=== PATIENT | female | born 1960 | race Caucasian/White ===

== ENCOUNTER → 2018-08-18 | Outpatient (CLI) | payer OTHER ==
[2018-08-18 21:06] LABS: IgG 876 mg/dL (700-1600); IgM 64 mg/dL (26-217)
[2018-08-19 10:10] LABS: HEPATITIS B SURFACE AG Negative (Negative)
[2018-08-20 03:06] LABS: CERULOPLASMIN 22.7 mg/dL (19.0-39.0)
[2018-08-20 13:07] LABS: ANA INTERPRETATION Negative (Negative)
== END ==
LOC: M.LAB 12:07
PROVIDERS: Physician Assistant
DX: R94.5 Abnormal results of liver function studies (principal); K76.0 Fatty (change of) liver, not elsewhere classified

== ENCOUNTER → 2018-08-23 | Outpatient (CLI) | payer OTHER ==
[2018-08-23 14:35] LABS: INR 1.1; PROTIME 10.8 Seconds (9.20-11.50)
== END ==
LOC: M.LAB 14:02
PROVIDERS: Physician Assistant
DX: R94.5 Abnormal results of liver function studies (principal); K76.0 Fatty (change of) liver, not elsewhere classified

== ENCOUNTER → 2018-10-28 | Outpatient (CLI) | payer OTHER ==
[~2018-10-28] MED LIST: ADVIL PM CAPLE1 EACH PO; LISINOPRIL20 MG PO; PRAMIPEXOLE D0.25 MG PO; PROBIOTIC1 EAC1 PO; TRAZODONE HCL50 MG PO
== END ==
LOC: M.MRI 07:43
DX: K80.80 Other cholelithiasis without obstruction (principal); R94.5 Abnormal results of liver function studies

== ENCOUNTER → 2018-11-03 | Day surgery (SDC) | payer OTHER ==
[2018-11-03 12:22] LABS: HEMATOCRIT 47.3 % (37.0-47.0); HEMOGLOBIN 15.9 gm/dL (12.0-15.0); MCHC 33.7 g/dL (28.0-37.0); MCV 88.9 fL (80.0-100.0); MPV 8.5 fl. (7.2-11.1); RBC 5.31 mil/uL (4.20-5.00); RDW-CV 14.1 % (10.5-14.5); WBC 6.5 thou/uL (4.0-11.0)
[2018-11-03 12:31] LABS: CALCIUM 10.1 mg/dL (8.5-10.1); CREATININE 0.9 mg/dL (0.6-1.3); POTASSIUM 3.7 mmol/L (3.5-5.1)
[2018-11-03 12:35] LABS: ALBUMIN 4.1 g/dL (3.4-5.0); TOTAL BILIRUBIN 0.7 mg/dL (<0.1-1.0)
--- NOTE | 2018-11-03 17:22 | EKG ---
[place] [address] ELECTROCARDIOGRAM REPORT Name: MO FINE Room: [facility]#: [id number] Admission: 11/03/18 Attend Phys: Tiffany Mckinnon DO Discharge: Date of : 58 Report #: [id number] THIS REPORT FOR: //name// [facility] Test Date: 2018-11-03 Test Time: 12:30:08 Pat Name: MO FINE Department: Room: Gender: F [employer] Project Lead: : 1960 Requested By: Tiffany Mckinnon Order Number: [id number] Serafin MD: Michael Bermudez Measurements Intervals [place] Rate: 65 P: 9 MN: 157 QRS: 12 QRSD: 86 T: 27 QT: 411 QTc: 428 Interpretive Statements Sinus rhythm Low voltage, precordial leads No previous ECG available for comparison Electronically Signed On 11-03-2018 17:22:03 CDT by Michael Bermudez [email or web address] <ELECTRONICALLY SIGNED> By: Michael Bermudez MD, [facility] 11/03/18 1722 1230 1230 Michael Bermudez MD, FACC /EPI
--- NOTE | 2018-11-04 08:04 | OP ---
[address] [address] OPERATIVE REPORT Name: MO FINE Room: [facility]..#: [id number] Admission: 11/03/18 Attend Phys: Tiffany Mckinnon DO Discharge: Date of : 58 Report #: [id number] THIS REPORT FOR: //name// CC: Tiffany Dash DO DICTATED BY: Lan Lubin DO DATE OF SERVICE: 11/03/2018 PREOPERATIVE DIAGNOSIS: Cholelithiasis. POSTOPERATIVE DIAGNOSIS: Chronic cholecystitis with cholelithiasis. SURGEON: Tiffany Mckinnon MD MATERIAL HANDLER FLOORPERSON: Angelo Lubin, PGY5 and Shira Eduardo, PGY2. OPERATION PERFORMED: Laparoscopic cholecystectomy. ANESTHESIA: General and local. ESTIMATED BLOOD LOSS: 5 mL. SPECIMENS: Gallbladder and contents. COMPLICATIONS: None. DISPOSITION: PACU to home. HISTORY OF PRESENT ILLNESS: The patient is a very pleasant 57-year-old female who presented to the office with complaints of abdominal pain. She has a known history of reflux and was worked up by the GI doctor, but was found to have gallstones as well as some mildly elevated LFTs. We had thoroughly evaluated her and got adequate history and physical, reviewed all of her labs as well as her imaging studies. We then recommended the patient to have a laparoscopic cholecystectomy to hopefully alleviate her pain as she has been having. Complete description of the procedure was reviewed in detail with the patient. All risks, benefits, and complications were discussed at the time of the office visit as well as prior to the surgery. The patient had all of her questions answered at bedside. She agreed with the plan and then wanted to proceed. DESCRIPTION OF PROCEDURE: After the appropriate consents were obtained, the patient was taken to the operating room, laid in the supine position. She had SCDs placed on her bilateral lower extremities and a safety [place] [address] OPERATIVE REPORT Name: MARQUEZLAMBERTMO ROSANNA Room: [facility]#: [id number] Admission: 11/03/18 Attend Phys: Tiffany Mckinnon DO Discharge: Date of : 58 Report #: [id number] her lap. She had all lines placed by Anesthesia. The patient was then sedated and intubated by anesthesia without difficulty. Her right arm was tucked at her side and the left arm was placed out. We did place a footboard in the bed to help secure it to the bed. Her abdomen was then prepped and draped in a standard sterile fashion. A timeout was performed to correctly identify the patient and procedure. The patient did receive perioperative antibiotics. We started with some 0.5% Marcaine at the supraumbilical site. We then used a #11 blade scalpel between 2 Adson's to make our supraumbilical semilunar incision at the curvature of the umbilicus. This was carried down through subcutaneous tissue until we encountered the anterior abdominal wall fascia. Once the fascia was encountered, it was grasped and elevated between 2 Britton clamps. The fascia was then incised using electrocautery and we entered the patient's peritoneal cavity bluntly using hemostat. A finger was used to sweep the anterior abdominal wall surface to ensure there were no carley-incisional adhesions noted present. We then placed 2 separate 0 Vicryl sutures on either side to act as stay sutures prior to May trocar. We then introduced the Daryl trocar and insufflated the patient's belly to 15 mmHg. The Daryl trocar was secured using the previously placed 0 Vicryl stitches. We introduced the camera and placed the patient in the head up and left side down position. Upon initial inspection, she had a gross amount of omentum and we could visualize her gallbladder rather easily. We then elected to place a 5 mm subxiphoid port under direct visualization. Using a blunt grasper, we were able to grasp the gallbladder and elevate it and then placed our right lateral abdominal wall ports under direct visualization. The gallbladder was then grasped and elevated anteriorly and cephalad to visualize the inferior portion of the gallbladder and hopefully visualize Drew's pouch. The patient had extensive amount of omental adhesions to the gallbladder, which were taken down bluntly as well as using electrocautery. We carefully took these down and stayed high on the gallbladder. Once we were able to completely visualize Drew's pouch, we started laterally with our dissection and we were able to visualize the lateral side of the cystic duct. I then turned our attention more medially and we were able to visualize Calot node and dissect out the cystic artery, which was coursing directly posterior to it. It was at that time that we were easily able to visualize our critical view of safety. There were 2 and only 2 structures going directly into the gallbladder. We then placed clips on the cystic duct as well as the cystic artery and both of these were incised using laparoscopic scissors. After these were incised, there was no oozing or bleeding from either of the arteries or the duct. We then continued our dissection using electrocautery, but were very careful in the posterior aspect of that there was a small posterior branch of the cystic artery going into the gallbladder. This was also skeletonized and had clips proximal and distally placed on it and was again incised using the laparoscopic scissors. After this, we carried our dissection out removing the gallbladder from the liver bed without difficulty. The bleeding was occurring was minimal in nature and was adequately controlled using electrocautery. Once the gallbladder was completely removed from the liver bed, it was placed in an EndoCatch pouch. We then [place] [address] OPERATIVE REPORT Name: MO FINE Room: [facility]#: [id number] Admission: 11/03/18 Attend Phys: Tiffany Mckinnon DO Discharge: Date of : 58 Report #: [id number] back to our clips to ensure they were in place as well as the liver bed. There did not appear to be any oozing or bleeding from the liver bed and no oozing or bleeding from the cystic duct or the cystic artery. It was at this time that we elected to place the patient in the neutral supine position. We removed our trocars under direct visualization. The patient's gallbladder was removed from the supraumbilical incision site. This was passed off as specimen sent to pathology of further evaluation. We grasped the fascia between the supraumbilical incision site and we approximated the fascia using a single [id number] 0 Vicryl stitch. We did ensure that prior to tying down our suture that there were no intra-abdominal contents and none were present within the fascia or the suture, we were tying. We then injected the patient's fascia as well as the subcutaneous tissue using 0.5% Marcaine. The subcutaneous was then closed using a 3-0 Vicryl stitch in an inverted interrupted fashion. The skin was closed using a running 4-0 Monocryl stitch in a subcuticular fashion. Each of the remaining 5 mm incision sites were injected using 0.5% Marcaine and closed using the same 4-0 Monocryl stitch in an inverted interrupted fashion. The patient's abdomen was cleaned and dried adequately and we placed Mastisol, Steri-Strips, gauze and a sterile Tegaderm applied over each of the incision sites. The counts were correct x 2 at the end of the procedure. Dr. Mckinnon was present and scrubbed for entirety of the procedure. The patient tolerated the procedure well. She was allowed to awaken and subsequently extubated in the OR and transferred to PACU where she will be allowed to recover and hopefully discharged home later today. <ELECTRONICALLY SIGNED> By: Tiffany Mckinnon DO 11/04/18 0804 1455 [id number] Mckinnon DO /nt
--- NOTE | 2018-11-05 15:07 | PATH ---
[facility] [address] [place] [address] PATHOLOGY RPT PROCEDURE Name: KRISTIE FRANCIS [id number] Admission: 11/03/18 Date of : 58 Discharge: Report #: [id number] Path Case #: [id number] [facility] Accession Number: [id number] . 01 Material submitted: . gallbladder - GALLBLADDER . 01 Clinical history: . Calculus of gallbladder w/o cholecystitis w/o obstruction . 02 Diagnosis: Gallbladder: - Chronic cholecystitis, cholelithiasis, and benign sentinel lymph node with lipophagic reaction. See comment. (ARIN:rojas; 11/05/2018) QMS/11/05/2018 . 02 Comment: The grossly described "possible polyp" did not survive processing. (ARIN:rojas; 11/05/2018) . 02 Electronically signed: . Alex Broderick MD, Pathologist NPI- [id number] . 01 Gross description: . Received in formalin labeled "Kristie Francis, gallbladder," is an intact gallbladder measuring 8.2 x 3.1 x 2.6 cm in greatest dimensions. The serosal surface is smooth to shaggy and dusky franklin-reinoso in appearance, partially covered in yellow adipose tissue. A reinoso-brown possible lymph node is noted near the infundibulum, measuring 0.9 x 0.5 x 0.5 cm. Opening the specimen reveals a granular, dark green mucosa measuring 0.1 cm in thickness, with a gallbladder wall thickness of up to 0.3 cm including attached adipose tissue. A single pale yellow possible polyp is noted, measuring 0.1 cm in maximum dimension and extending to within 4.1 cm of the infundibulum. A single calculus is present within the specimen that is granular and dark green-black in appearance, measuring 1.0 cm in maximum dimension. Costing Analyst sections of the infundibulum, body and fundus are submitted in cassette A1, to include the possible polyp. The bisected possible lymph node is submitted entirely in cassette A2. (DAC; 11/04/2018) XDC/XDC . 02 Pathologist provided ICD-10: K80.10 . 02 CPT . [address] [place] [address] PATHOLOGY RPT PROCEDURE Name: KRISTIE FRANCIS ROSANNA Room: [facility].#: [id number] Admission: 11/03/18 Date of : 58 Discharge: Report #: [id number] Path Case #: [id number] Specimen Comment: A courtesy copy of this report has been sent to Specimen Comment: [phone], . Specimen Comment: Report sent to / DR IRVIN Performed at: [address], [place], [place] [id number] MD Mario Palumbo MD Phone: [phone] Performed at: 02 [facility] [address], [place], [place] [id number] MD Alex Broderick MD Phone: [phone]
== END | disposition home or self-care (01) ==
LOC: M.SUR 10:46
PROVIDERS: Surgery
DX: K80.10 Calculus of gallbladder with chronic cholecystitis without obstruction (principal); D36.0 Benign neoplasm of lymph nodes; Z88.2 Allergy status to sulfonamides; Z79.899 Other long term (current) drug therapy

== ENCOUNTER 2021-05-18 15:19 | Emergency (ER) | payer OTHER ==
[~2021-05-18] VITALS: Ht 157.5 cm; Wt 91.2 kg
[2021-05-18] MEDS ORDERED: ZETIA10 MG PO (15:37)
[2021-05-18] MEDS ORDERED: CEPHALEXIN500 MG PO (16:28)
[2021-05-18 16:54] VITALS: BP 127/100
== END 2021-05-18 16:55 | disposition home or self-care (01) ==
LOC: M.ERS 15:19
DX: S61.412A Laceration without foreign body of left hand, initial encounter (principal); I10 Essential (primary) hypertension; E78.00 Pure hypercholesterolemia, unspecified; Z79.899 Other long term (current) drug therapy; Z88.2 Allergy status to sulfonamides; W26.0XXA Contact with knife, initial encounter; Y93.89 Activity, other specified; Y92.89 Other specified places as the place of occurrence of the external cause; Y99.8 Other external cause status